=== PATIENT | female | born 1970 | race Caucasian/White ===

== ENCOUNTER 2020-09-28 10:32 | Emergency (ER) | payer BC | END 2020-09-28 11:14 | disposition home or self-care (01) | LOC: JVIRT 10:32 | DX: R43.0 Anosmia (principal); Z11.59 Encounter for screening for other viral diseases | CPT/HCPCS: C9803; Q3014-GT; U0003 ==

== ENCOUNTER 2020-11-06 11:30 | Emergency (ER) | payer BC | END 2020-11-06 13:18 | disposition home or self-care (01) | LOC: JVIRT 11:30 | DX: Z03.818 Encounter for observation for suspected exposure to other biological agents ruled out (principal) | CPT/HCPCS: C9803; G2012-GT; Q3014-GT; U0003 ==